=== PATIENT | female | born 1965 | race African-American/Black ===

== ENCOUNTER 2018-06-24 09:56 | Day surgery (SDC) | payer BC ==
[2018-06-24] MEDS ORDERED: PROPOFOL 40 ML (10:47)
[2018-06-24] MEDS ORDERED: LIDOCAINE 2% (SDV) 5 ML INJ (10:47)
== END 2018-06-24 16:42 | disposition home or self-care (01) ==
LOC: GIL 09:56
DX: K29.50 Unspecified chronic gastritis without bleeding (principal); D12.5 Benign neoplasm of sigmoid colon; K64.8 Other hemorrhoids; E11.9 Type 2 diabetes mellitus without complications; Z80.0 Family history of malignant neoplasm of digestive organs
CPT/HCPCS: 43239; 82962; 88305